=== PATIENT | male | born 1985 | race Caucasian/White ===

== ENCOUNTER 2022-03-09 21:59 | Inpatient (IN) | payer OTHER, SELFPAY ==
--- NOTE | ~2022-03-09 | XR_ITS ---
EXAMINATION: XR PELVIS CLINICAL INFORMATION: Intractable erection. COMPARISON: No similar priors. TECHNIQUE: AP view of the pelvis. FINDINGS: There are 2 nonspecific radiopaque bodies projecting inferior to the pubic symphysis symphysis in the area of the penis. Small pelvic phleboliths are noted. No acute osseous abnormalities. XR/XR pelvis 1-2V IMPRESSION: 1. There are 2 nonspecific radiopaque bodies projecting inferior to the pubic symphysis in the area of the penis. Correlate with physical examination. 2. No acute osseous abnormalities.
--- NOTE | ~2022-03-09 | XR_ITS ---
EXAMINATION: XR CHEST CLINICAL INFORMATION: Altered mental status. Unable to sit upright. COMPARISON: None TECHNIQUE: Supine AP view of the chest was obtained. FINDINGS: Patient is rotated to the left slightly. No consolidation, pneumothorax, or pleural effusion. Lung volumes are within normal limits for supine study. Cardiac and mediastinal contours are normal. No acute osseous abnormalities. Mild right convex thoracic scoliosis. XR/XR chest 1V IMPRESSION: No acute pulmonary findings.
--- NOTE | 2022-03-09 22:01 | ECG_ITS ---
Test Reason : OD Blood Pressure : / mmHG Vent. Rate : 101 BPM Atrial Rate : 101 BPM P-R Int : 150 ms QRS Dur : 080 ms QT Int : 414 ms P-R-T Axes : 057 058 018 degrees QTc Int : 536 ms Sinus tachycardia Nonspecific ST and T wave abnormality RSR' or QR pattern in V1 suggests right ventricular conduction delay Possible Left ventricular hypertrophy Abnormal ECG When compared with ECG of 27-DEC-2019 14:53, Vent. rate has increased BY 57 BPM Non-specific change in ST segment in Inferior leads ST no longer elevated in Lateral leads Nonspecific T wave abnormality now evident in Anterior leads Referred By: Kelsy Travis Electronically Signed By:SHIMA MASSEY MD
--- NOTE | 2022-03-09 22:02 | ED.GENADULT ---
HPI - General Adult General Chief complaint: Overdose Stated complaint: ams Time Seen by Provider: 03/09/22 22:01 Source: EMS Mode of arrival: EMS Limitations: altered mental status and other History of Present Illness HPI narrative: This is a 36-year-old male presenting to the emergency department altered mental status status post overdose, according to EMS parents report patient has been ordering medications online and has been taking an unknown amount of methadone, phenobarbital, olanzapine,, Lexapro and some sort of liquid concoction. According to EMS patient was discharged from [facility] on Friday after having a procedure done on his penis. Ever since patient has been self medicating however has not been this bad patient has a history of being on [place]. Narcan was given by EMS. Related Data Allergies Allergy/AdvReac Type Severity Reaction Status Date / Time No Known Allergies Allergy Unverified 02/14/22 08:37 [No Known Allergies*] Review of Systems Review of Systems: Yes Unobtainable due to mental status PMFSH Past Medical History Attestation statement: The following information was validated with the patient. Source: old records reviewed and nursing notes reviewed Physical Exam ED Vital Signs: Vital Signs - 24 hr 03/09/22 22:36 03/09/22 22:53 03/09/22 23:57 Pulse Rate 108 H 106 H 99 Respiratory Rate 22 H 17 26 H Blood Pressure 143/109 H 122/68 132/77 Pulse Oximetry 98 96 96 Oxygen Delivery Method Room Air Room Air Room Air BMI result Body Mass Index 28.1 Vital signs stable Appearance: Patient awake, moving all extremities, altered unable to answer my questions. ?Patient restless. Head: Normocephalic, atraumatic, no step-offs or deformities Eyes: Pupils equal, round and reactive to light.? ENT: Pharynx normal.? Neck: Normal inspection.? Neck supple.? CVS: Normal heart rate and rhythm.? Pulses normal.? Respiratory: No respiratory distress.? Breath sounds normal.? Abdomen: Soft and nontender.? Sensitive exam: Patient with priapism Skin: Skin warm and dry.? Normal skin color.? Normal skin turgor.? Extremities: 5/5 strength to bilateral upper and lower extremities Neuro: Patient awake, moving all extremities, altered mental status, unable to answer my questions, moving all extremities. Course Course Course Narrative: 2240 Poison control recommend optimizing magnesium to 2, potassium to for they recommend adding on a phosphorus level as well as a phenobarbital level every 4 hours until it peaks in goes to normal range also recommending EKG every 2 hours can give benzodiazepines for behavioral control. Also warned to look out preserved tone in syndrome symptoms such as altered mental status, seizure, clonus or hyperreflexia. Patient will be placed on seizure precautions at this time. Reevaluation(s) Reevaluation #1: Patient's CBC with leukocytosis likely secondary to agitation, patient's chemistry with acute kidney injury currently receiving IV hydration. Troponin negative, EKG nonischemic however showing prolonged QTC. CPK within normal limits no signs of rhabdo. Patient's EKG with slightly prolonged QTC will give magnesium at this time. Salicylates, acetaminophen negative. Ethanol negative. Urine without infection. Urine toxicology pending. Pending phenobarbital level. Repeat EKG scheduled for midnight. Patient agitated however gave Versed with some improvement. Time: 22:52 Reevaluation #2: Urine toxicology positive for fentanyl, benzos, marijuana. Negative salicylates, acetaminophen, ethanol. COVID negative. Repeat EKG pending. An additional 2 mg of Versed have been given. Time: 00:06 Reevaluation #3: Repeat EKG with sinus tachycardia, ventricular rate of 101, DC 150, QRS 80, QTC 414, QTC 536 again prolonged QTC however patient receiving magnesium. At this time will continue to monitor. Remains on telemetry. No signs of seizure, no signs of serotonin syndrome. Patient still has preop is a move, will obtain a KUB to ensure that there is no penile implant. TT to Dr. Wang. Time: 00:22 Additional Reevaluation(s): [address] Wang likely incision for peyronies, nothing to do about the erection. Hospitalist aware. Medications Administered Generic Name Dose Route Start Last Admin Trade Name Freq PRN Reason Stop Dose Admin Magnesium Sulfate 2 gm in 50 mls @ 25 mls/hr 03/09/22 22:50 03/09/22 22:59 Magnesium Sulfate/H2o IV 03/10/22 00:49 25 mls/hr ONCE ONE Administration Discontinued Medications Generic Name Dose Route Start Last Admin Trade Name Freq PRN Reason Stop Dose Admin Charcoal 50 gm 03/09/22 22:01 03/09/22 23:06 Activated Charcoal 50 Gm/240 Ml Oral.Susp PO 03/09/22 22:02 Not Given ONCE ONE Sodium Chloride 1,000 mls @ 999 mls/hr 03/09/22 22:15 03/09/22 22:32 Ns IV 03/09/22 23:15 999 mls/hr .Q1H1M CAROLINE Administration Sodium Chloride 1,000 mls @ 999 mls/hr 03/09/22 23:00 03/09/22 23:24 Ns IV 03/10/22 00:00 999 mls/hr .Q1H1M CAROLINE Administration Midazolam HCl 2 mg 03/09/22 22:42 03/09/22 22:48 Midazolam Hcl/Pf 2 Mg/2 Ml Vial IVPUSH 03/09/22 22:43 2 mg ONCE ONE Administration Midazolam HCl 2 mg 03/09/22 23:48 03/09/22 23:58 Midazolam Hcl/Pf 2 Mg/2 Ml Vial IVPUSH 03/09/22 23:49 2 mg ONCE ONE Administration Medical Decision Making [facility] Narrative Medical decision making narrative: 2225 36-year-old male presents for altered mental status status post intentional overdose on medications he buys online. Unsure how much he has had. Physical examination patient unable to answer my questions, moving all extremities, pupils equal round and reactive to light, unable to assess neuro examination secondary to patient not participating. Regular rate and rhythm. Lungs clear. Abdomen soft nontender nondistended. Hemodynamically stable. No evidence of trauma at this time. Patient noted to have priapism upon arrival Plan at this time is to reach out to poison control for further guidance. Patient controlling his own airway. Will order charcoal at this time. Will obtain basic labs, toxicology, acetaminophen, salicylates. Concerns for potential serotonin syndrome. Attempted to contact family about priapism, to obtain more information about patient's surgery however no information in the chart for emergency contact patient isn't able to answer my questions. Medical Records Medical records reviewed: Yes I reviewed the patient's medical records. Lab Data Lab results reviewed: Yes I reviewed the patient's lab results. Result diagrams: 03/09/22 22:24 03/09/22 22:24 Labs: Lab Results 03/09/22 03/09/22 03/09/22 Range/Units 22:24 22:24 22:24 WBC 12.2 H (4.8-10.8) X10*3/uL RBC 3.65 L (4.60-5.80) X10*6/uL Hgb 11.2 L (14.0-18.0) g/dl Hct 33.6 L (42.0-52.0) % MCV 92.1 (80.0-98.0) fL MCH 30.7 (27.0-33.0) pg MCHC 33.3 (31.0-36.0) g/dl RDW 13.6 (11.0-16.0) % Plt Count 561 H (160-400) X10*3/uL MPV 9.5 (9.4-12.4) fL Immature Gran % (Auto) 1.1 H (0.0-0.4) % Neut % (Auto) 51.2 (45-73) % Lymph % (Auto) 33.9 (20-40) % Imperial % (Auto) 9.7 (2-11) % Eos % (Auto) 3.4 (0-4) % Baso % (Auto) 0.7 (0-2) % Lymph # (Auto) 4.1 (1.2-4.9) X10*3/uL Imperial # (Auto) 1.2 (0.1-1.2) X10*3/uL Eos # (Auto) 0.4 (0.0-0.4) X10*3/uL Baso # (Auto) 0.1 (0.0-0.2) X10*3/uL Abs Immat Gran (auto) 0.14 H (0.00-0.03) X10*3/uL Absolute Neuts (auto) 6.2 (2.0-8.3) x10*3/uL Absolute Nucleated RBC 0.000 (0.0-0.012) X10*3/uL Nucleated RBC % (auto) 0.0 (0.0-0.2) /100WBC Sodium 142 (135-145) mmol/L Potassium 4.2 (3.3-5.1) mmol/L Chloride 104 (96-108) mmol/L Carbon Dioxide 25 (22-29) mmol/L Anion Gap 17 (12-20) BUN 24 H (9-16) mg/dL Creatinine 1.87 H (0.5-1.4) mg/dL Estim Creat Clear Calc 72.0 Estimated GFR 42 Random Glucose 94 (60-115) mg/dL Calcium 9.7 (8.4-10.2) mg/dL Phosphorus 3.4 (2.7-4.5) mg/dL Magnesium 2.4 (1.6-2.6) mg/dL Total Bilirubin 0.4 (0.0-1.0) mg/dL AST 27 (5-37) U/L ALT 75 H (0-40) U/L Alkaline Phosphatase 142 H (39-117) U/L Total Creatine Kinase 98 (38-174) U/L Troponin I High Sens < 3.5 (<3.5-35.0) ng/L Total Protein 7.7 (6.5-8.0) g/dL Albumin 4.0 (3.5-5.0) g/dL Urine Color Urine Appearance Urine pH (5.0-9.0) Ur Specific [place] (1.005-1.025) Urine Protein (Neg-Trace) mg/dL Urine Glucose (UA) (Negative) mg/dL Urine Ketones (Negative) mg/dL Urine Blood (Negative) Urine Nitrite (Negative) Ur Leukocyte Esterase (Negative) Salicylates < 5.0 L (15-30) mg/dL Urine Opiates Screen (Not Detect) Urine Fentanyl Screen (Not Detect) Acetaminophen < 1 (<30) mcg/mL Ur Barbiturates Screen (Not Detect) Ur Phencyclidine Scrn (Not Detect) Ur Amphetamines Screen (Not Detect) U Benzodiazepines Scrn (Not Detect) Urine Cocaine Screen (Not Detect) U Marijuana (THC) Screen (Not Detect) Ethyl Alcohol < 10 mg/dL COVID-19 (DANNIE) (Negative) COVID-19 Clin Com 03/09/22 03/09/22 03/09/22 Range/Units 22:24 22:30 22:30 WBC (4.8-10.8) X10*3/uL RBC (4.60-5.80) X10*6/uL Hgb (14.0-18.0) g/dl Hct (42.0-52.0) % MCV (80.0-98.0) fL MCH (27.0-33.0) pg MCHC (31.0-36.0) g/dl RDW (11.0-16.0) % Plt Count (160-400) X10*3/uL MPV (9.4-12.4) fL Immature Gran % (Auto) (0.0-0.4) % Neut % (Auto) (45-73) % Lymph % (Auto) (20-40) % [place] % (Auto) (2-11) % Eos % (Auto) (0-4) % Baso % (Auto) (0-2) % Lymph # (Auto) (1.2-4.9) X10*3/uL [place] # (Auto) (0.1-1.2) X10*3/uL Eos # (Auto) (0.0-0.4) X10*3/uL Baso # (Auto) (0.0-0.2) X10*3/uL Abs Immat Gran (auto) (0.00-0.03) X10*3/uL Absolute Neuts (auto) (2.0-8.3) x10*3/uL Absolute Nucleated RBC (0.0-0.012) X10*3/uL Nucleated RBC % (auto) (0.0-0.2) /100WBC Sodium (135-145) mmol/L Potassium (3.3-5.1) mmol/L Chloride (96-108) mmol/L Carbon Dioxide (22-29) mmol/L Anion Gap (12-20) BUN (9-16) mg/dL Creatinine (0.5-1.4) mg/dL Estim Creat Clear Calc Estimated GFR Random Glucose (60-115) mg/dL Calcium (8.4-10.2) mg/dL Phosphorus (2.7-4.5) mg/dL Magnesium (1.6-2.6) mg/dL Total Bilirubin (0.0-1.0) mg/dL AST (5-37) U/L ALT (0-40) U/L Alkaline Phosphatase (39-117) U/L Total Creatine Kinase (38-174) U/L Troponin I High Sens (<3.5-35.0) ng/L Total Protein (6.5-8.0) g/dL Albumin (3.5-5.0) g/dL Urine Color Yellow Urine Appearance Clear Urine pH 5.0 (5.0-9.0) Ur Specific [place] 1.015 (1.005-1.025) Urine Protein Negative (Neg-Trace) mg/dL Urine Glucose (UA) Negative (Negative) mg/dL Urine Ketones Trace (Negative) mg/dL Urine Blood Negative (Negative) Urine Nitrite Negative (Negative) Ur Leukocyte Esterase Negative (Negative) Salicylates (15-30) mg/dL Urine Opiates Screen Not Detected (Not Detect) Urine Fentanyl Screen POSITIVE H (Not Detect) Acetaminophen (<30) mcg/mL Ur Barbiturates Screen Not Detected (Not Detect) Ur Phencyclidine Scrn Not Detected (Not Detect) Ur Amphetamines Screen Not Detected (Not Detect) U Benzodiazepines Scrn POSITIVE H (Not Detect) Urine Cocaine Screen Not Detected (Not Detect) U Marijuana (THC) Screen POSITIVE H (Not Detect) Ethyl Alcohol mg/dL COVID-19 (DANNIE) Negative (Negative) COVID-19 Clin Com See Note ECG Data Attestation: I personally reviewed and interpreted this ECG as follows: Prior ECG tracings: available for review Interpretation: Ventricular rate of 101, DC normal, QRS normal, QT/QTC prolonged, EKG was sinus tachycardia no ST elevations or inversions concerning for ischemia. Critical Care Time Critical Care Time Critical Care Time: Yes Total Critical Care Time: 90 Attestation: I attest to this time spent taking care of the patient, obtaining history, physical, reviewing labs, imaging, speaking to my attending, speaking to specialist. Discharge Plan Discharge Clinical Impression: Drug overdose, HE (acute kidney injury), Prolonged QT interval Patient Disposition: Admitted As Inpatient
[2022-03-09 22:29] LABS: MANUAL DIFF FLAG NO
[2022-03-09 22:31] LABS: Basophils Absolute Auto 0.1 X10*3/uL (0.0-0.2); Basophils Percent Auto 0.7 % (0-2); Eosinophils Absolute Auto 0.4 X10*3/uL (0.0-0.4); Eosinophils Percent Auto 3.4 % (0-4); Hematocrit 33.6 % (42.0-52.0); Hemoglobin 11.2 g/dl (14.0-18.0); Imm Gran Abs Auto 0.14 X10*3/uL (0.00-0.03); Imm Gran Pct Auto 1.1 % (0.0-0.4); Lymphocytes Absolute Auto 4.1 X10*3/uL (1.2-4.9); Lymphocytes Percent Auto 33.9 % (20-40); Mean Corpuscular HGB Conc 33.3 g/dl (31.0-36.0); Mean Corpuscular Hemoglobin 30.7 pg (27.0-33.0); Mean Corpuscular Volume 92.1 fL (80.0-98.0); Mean Platelet Volume 9.5 fL (9.4-12.4); Monocytes Absolute Auto 1.2 X10*3/uL (0.1-1.2); Monocytes Percent Auto 9.7 % (2-11); Neutrophils Absolute Auto 6.2 x10*3/uL (2.0-8.3); Neutrophils Percent Auto 51.2 % (45-73); Platelet Count 561 X10*3/uL (160-400); Red Blood Count 3.65 X10*6/uL (4.60-5.80); Red Cell Distribution Width 13.6 % (11.0-16.0); White Blood Count 12.2 X10*3/uL (4.8-10.8)
[2022-03-09] MEDS: 0.9 % Sodium Chloride 1,000 ML 999 ML IV ×2 (22:32→23:24)
[2022-03-09 22:36] VITALS: BP 143/109; PULSE 108; RESP 22; O2SAT 98; BMI 28.1
--- NOTE | 2022-03-09 22:44 | PC.NURSE ---
Poison control called at 10:40opm, provider RANJIT Escoto took call and recommendation. Notified VINCE Aviles.
[2022-03-09] MEDS: Midazolam HCl/PF 2 MG/2 ML VIAL IVPUSH ×2 (22:48→23:58)
[2022-03-09 22:49] LABS: Appearance Urine Clear; Color Urine Yellow; Glucose Urine UA Negative (Negative); Leukocyte Esterase Urine Negative (Negative); Nitrite Urine Negative (Negative); Specific Gravity - Urine 1.015 (1.005-1.025); Urine Blood Negative (Negative); Urine Ketones Trace mg/dL (Negative); Urine Protein Negative (Neg-Trace)
[2022-03-09 22:53] VITALS: BP 122/68; PULSE 106; RESP 17; O2SAT 96
[2022-03-09 22:54] LABS: Troponin-I High Sensitivity < 3.5 ng/L (<3.5-35.0)
[2022-03-09 22:56] LABS: Acetaminophen LAB < 1 mcg/mL (<30); Alanine Aminotransferase 75 U/L (0-40); Alkaline Phosphatase 142 U/L (39-117); Anion Gap 17 (12-20); Aspartate Amino Transferase 27 U/L (5-37); Bilirubin Total 0.4 mg/dL (0.0-1.0); Blood Urea Nitrogen 24 mg/dL (9-16); Calcium 9.7 mg/dL (8.4-10.2); Carbon Dioxide 25 mmol/L (22-29); Chloride 104 mmol/L (96-108); Estimated Glomerular Filt Rate 42; Ethanol < 10 mg/dL; Glucose Random 94 mg/dL (60-115); Magnesium 2.4 mg/dL (1.6-2.6); Potassium 4.2 mmol/L (3.3-5.1); Salicylate < 5.0 mg/dL (15-30); Sodium 142 mmol/L (135-145); Total Protein 7.7 g/dL (6.5-8.0)
[2022-03-09] MEDS: Magnesium Sulfate/H2O 2 GM/50 ML PIGGYBACK IV (22:59)
[2022-03-09 23:00] LABS: COVID-19 Test Negative (Negative)
[2022-03-09 23:04] LABS: Phosphorus 3.4 mg/dL (2.7-4.5)
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
[2022-03-09 23:41] LABS: Amphetamine Screen Urine Not Detected (Not Detect); Barbiturates, Urine Not Detected (Not Detect); Benzodiazepines Screen Urine POSITIVE (Not Detect); Cannabinoid Screen Urine POSITIVE (Not Detect); Cocaine Screen Urine Not Detected (Not Detect); Fentanyl, urine POSITIVE (Not Detect); Opiate Screen Urine Not Detected (Not Detect); Phencyclidine Screen Urine Not Detected (Not Detect)
[2022-03-09 23:57] VITALS: BP 132/77; PULSE 99; RESP 26; O2SAT 96
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
[2022-03-10] VITALS (8 sets, daily range): BP systolic 108–120; BP diastolic 57–62; PULSE 62–84; RESP 16–22; TEMP 35.8–36.7; O2SAT 96–100
--- NOTE | 2022-03-10 | ECG_ITS ---
Test Reason : REPEAT Blood Pressure : / mmHG Vent. Rate : 081 BPM Atrial Rate : 081 BPM P-R Int : 158 ms QRS Dur : 096 ms QT Int : 436 ms P-R-T Axes : 059 064 046 degrees QTc Int : 506 ms Normal sinus rhythm RSR' or QR pattern in V1 suggests right ventricular conduction delay Nonspecific ST abnormality Inferior leads Abnormal ECG When compared with ECG of 09-MAR-2022 22:29, T wave inversion no longer evident in Inferior leads Nonspecific T wave abnormality, improved in Anterior leads Referred By: Kelsy Travis Electronically Signed By:SHIMA MASSEY MD
[2022-03-10 00:39] LABS: MANUAL DIFF FLAG NO
[2022-03-10 00:46] LABS: Basophils Absolute Auto 0.1 X10*3/uL (0.0-0.2); Basophils Percent Auto 0.5 % (0-2); Eosinophils Absolute Auto 0.2 X10*3/uL (0.0-0.4); Eosinophils Percent Auto 2.1 % (0-4); Hematocrit 26.8 % (42.0-52.0); Hemoglobin 8.7 g/dl (14.0-18.0); Imm Gran Abs Auto 0.17 X10*3/uL (0.00-0.03); Imm Gran Pct Auto 1.7 % (0.0-0.4); Lymphocytes Absolute Auto 1.7 X10*3/uL (1.2-4.9); Lymphocytes Percent Auto 16.1 % (20-40); Mean Corpuscular HGB Conc 32.5 g/dl (31.0-36.0); Mean Corpuscular Volume 92.4 fL (80.0-98.0); Mean Platelet Volume 9.7 fL (9.4-12.4); Monocytes Absolute Auto 0.8 X10*3/uL (0.1-1.2); Monocytes Percent Auto 7.6 % (2-11); Neutrophils Absolute Auto 7.4 x10*3/uL (2.0-8.3); Platelet Count 491 X10*3/uL (160-400); Red Cell Distribution Width 13.3 % (11.0-16.0); White Blood Count 10.2 X10*3/uL (4.8-10.8)
[2022-03-10 00:47] LABS: VBG Base Excess 0.3 mmol/L; VBG HCO3 22 mmol/L (22-26); VBG pCO2 26 mmHg; VBG pH 7.52 (7.32-7.43); VBG pO2 130 mmHg
[2022-03-10 00:48] LABS: Venous Blood Gas Refer to POC result
[2022-03-10] MEDS: 0.9 % Sodium Chloride 1,000 ML 999 ML IV (00:52)
[2022-03-10] MEDS: Magnesium Sulfate/D5W 1 GM/100 ML PIGGYBACK IV (00:53)
[2022-03-10 01:07] LABS: Alanine Aminotransferase 66 U/L (0-40); Albumin Level 3.5 g/dL (3.5-5.0); Alkaline Phosphatase 124 U/L (39-117); Anion Gap 16 (12-20); Aspartate Amino Transferase 26 U/L (5-37); Bilirubin Total 0.3 mg/dL (0.0-1.0); Blood Urea Nitrogen 22 mg/dL (9-16); Calcium 8.4 mg/dL (8.4-10.2); Carbon Dioxide 21 mmol/L (22-29); Chloride 110 mmol/L (96-108); Estimated Glomerular Filt Rate 52; Glucose Random 100 mg/dL (60-115); Sodium 143 mmol/L (135-145); Total Protein 6.4 g/dL (6.5-8.0)
--- NOTE | 2022-03-10 01:23 | P.HPHOSP_ITS ---
History of Present Illness Date of Service: 03/10/22 Chief Complaint: Altered mentation This is a 36 year old male with pertinent history of substance use disorder who was brought to the emergency department for evaluation of altered mentation. As per EMS, patient had been ordering medications online and was taking unknown amount of methadone, phenobarbital, Zyprexa, Lexapro and some sort of liquid concoction. Patient recently had a penile procedure on Friday, unknown details. He does have a history of substance use disorder and after the procedure patient had been using unknown amounts of substances. Has history of being on [address]. No family at bedside and unable to contact any. Patient is only responding to painful stimulus at the time of my examination. He was given Narcan by EMS enroute and Versed in the ER for agitation. Poison Control was contacted and he was given activated charcoal. Review of Systems Review of Systems: Yes Unobtainable due to mental status [facility] Medical History (Updated 03/10/22 @ 01:30 by María Elena Boyce MD) Substance use disorder Functional capacity: independent ambulation Social History Advance Directives: No Advance Directives Information Provided: No Meds Allergies Allergy/AdvReac Type Severity Reaction Status Date / Time No Known Allergies Allergy Unverified 02/14/22 08:37 [No Known Allergies*] Active Medications: Current Medications Acetaminophen (Acetaminophen Supp 650 Mg Supp.Rect) 650 mg MD Q6H PRN PRN Reason: Pain, Mild (Pain Scale 1-3) Sodium Chloride (Ns) 1,000 mls @ 999 mls/hr IV .Q1H1M CAROLINE Stop: 03/10/22 01:30 Last Admin: 03/10/22 00:52 Dose: 999 mls/hr Magnesium Sulfate/Dextrose (Magnesium Sulfate/D5w) 1 gm in 100 mls @ 100 mls/hr IV ONCE ONE Stop: 03/10/22 01:25 Last Admin: 03/10/22 00:53 Dose: 100 mls/hr Ondansetron HCl (Ondansetron Hcl 4 Mg/2 Ml Vial) 4 mg IVPUSH Q8H PRN PRN Reason: Nausea and Vomiting Pharmacy Consult (Consult Rx Perform Med Rec) 1 each MISCELLANE ONCE PRN PRN Reason: Consult order Sodium Chloride (0.9 % Sodium Chloride Flush 3 Ml Syringe) 3 ml IVFLUSH QSHIFT [facility] Physical Exam Vital Signs and Narrative: Vital Signs: Last Vital Signs Pulse 82 03/10/22 01:20 Resp 19 03/10/22 01:20 BP 112/58 L 03/10/22 00:59 Pulse Ox 97 03/10/22 01:20 O2 Del Method 03/10/22 01:20 BMI result Body Mass Index 28.1 Middle-aged male lying in bed in no distress Neck supple, no JVD Regular rate and rhythm, S1-S2 heard Regular breath sounds bilaterally, no wheezing or crackles appreciated Abdomen soft nontender, no guarding, no rigidity, erect penis with stitches on the ventral aspect Patient is only responding to painful stimulus Psych: Drowsy No pedal edema Results Labs CBC and Chem 7: 03/10/22 00:25 03/10/22 00:25 Labs: Laboratory Results - last 24 hr 03/09/22 03/09/22 03/09/22 22:24 22:24 22:24 MCV 92.1 MCH 30.7 MCHC 33.3 RDW 13.6 Plt Count 561 H MPV 9.5 Immature Gran % (Auto) 1.1 H Neut % (Auto) 51.2 Lymph % (Auto) 33.9 [place] % (Auto) 9.7 Eos % (Auto) 3.4 Baso % (Auto) 0.7 Lymph # (Auto) 4.1 [place] # (Auto) 1.2 Eos # (Auto) 0.4 Baso # (Auto) 0.1 Abs Immat Gran (auto) 0.14 H Absolute Neuts (auto) 6.2 Absolute Nucleated RBC 0.000 Nucleated RBC % (auto) 0.0 VBG pH VBG pCO2 VBG pO2 VBG HCO3 VBG O2 Saturation VBG Base Excess Anion Gap 17 Estim Creat Clear Calc 72.0 Estimated GFR 42 Random Glucose 94 Calcium 9.7 Phosphorus 3.4 Magnesium 2.4 Total Bilirubin 0.4 AST 27 ALT 75 H Alkaline Phosphatase 142 H Total Creatine Kinase 98 Troponin I High Sens < 3.5 Total Protein 7.7 Albumin 4.0 Urine Color Urine Appearance Urine pH Ur Specific [place] Urine Protein Urine Glucose (UA) Urine Ketones Urine Blood Urine Nitrite Ur Leukocyte Esterase Salicylates < 5.0 L Urine Opiates Screen Urine Fentanyl Screen Acetaminophen < 1 Ur Barbiturates Screen Ur Phencyclidine Scrn Ur Amphetamines Screen Phenobarbital U Benzodiazepines Scrn Urine Cocaine Screen U Marijuana (THC) Screen Ethyl Alcohol < 10 COVID-19 (DANNIE) COVID-19 Clin Com 03/09/22 03/09/22 03/09/22 22:24 22:30 22:30 MCV MCH MCHC RDW Plt Count MPV Immature Gran % (Auto) Neut % (Auto) Lymph % (Auto) [place] % (Auto) Eos % (Auto) Baso % (Auto) Lymph # (Auto) [place] # (Auto) Eos # (Auto) Baso # (Auto) Abs Immat Gran (auto) Absolute Neuts (auto) Absolute Nucleated RBC Nucleated RBC % (auto) VBG pH VBG pCO2 VBG pO2 VBG HCO3 VBG O2 Saturation VBG Base Excess Anion Gap Estim Creat Clear Calc Estimated GFR Random Glucose Calcium Phosphorus Magnesium Total Bilirubin AST ALT Alkaline Phosphatase Total Creatine Kinase Troponin I High Sens Total Protein Albumin Urine Color Yellow Urine Appearance Clear Urine pH 5.0 Ur Specific [place] 1.015 Urine Protein Negative Urine Glucose (UA) Negative Urine Ketones Trace Urine Blood Negative Urine Nitrite Negative Ur Leukocyte Esterase Negative Salicylates Urine Opiates Screen Not Detected Urine Fentanyl Screen POSITIVE H Acetaminophen Ur Barbiturates Screen Not Detected Ur Phencyclidine Scrn Not Detected Ur Amphetamines Screen Not Detected Phenobarbital U Benzodiazepines Scrn POSITIVE H Urine Cocaine Screen Not Detected U Marijuana (THC) Screen POSITIVE H Ethyl Alcohol COVID-19 (DANNIE) Negative COVID-19 Clin Com See Note 03/10/22 03/10/22 03/10/22 00:15 00:25 00:25 MCV 92.4 MCH 30.0 MCHC 32.5 RDW 13.3 Plt Count 491 H MPV 9.7 Immature Gran % (Auto) 1.7 H Neut % (Auto) 72.0 Lymph % (Auto) 16.1 L [place] % (Auto) 7.6 Eos % (Auto) 2.1 Baso % (Auto) 0.5 Lymph # (Auto) 1.7 [place] # (Auto) 0.8 Eos # (Auto) 0.2 Baso # (Auto) 0.1 Abs Immat Gran (auto) 0.17 H Absolute Neuts (auto) 7.4 Absolute Nucleated RBC 0.000 Nucleated RBC % (auto) 0.0 VBG pH VBG pCO2 VBG pO2 VBG HCO3 VBG O2 Saturation VBG Base Excess Anion Gap 16 Estim Creat Clear Calc 88.0 Estimated GFR 52 Random Glucose 100 Calcium 8.4 D Phosphorus Magnesium Total Bilirubin 0.3 AST 26 ALT 66 H Alkaline Phosphatase 124 H Total Creatine Kinase Troponin I High Sens Total Protein 6.4 L Albumin 3.5 Urine Color Urine Appearance Urine pH Ur Specific [place] Urine Protein Urine Glucose (UA) Urine Ketones Urine Blood Urine Nitrite Ur Leukocyte Esterase Salicylates Urine Opiates Screen Urine Fentanyl Screen Acetaminophen Ur Barbiturates Screen Ur Phencyclidine Scrn Ur Amphetamines Screen Phenobarbital < 1.1 L* U Benzodiazepines Scrn Urine Cocaine Screen U Marijuana (THC) Screen Ethyl Alcohol COVID-19 (DANNIE) COVID-19 [employer] 03/10/22 00:40 MCV MCH MCHC RDW Plt Count MPV Immature Gran % (Auto) Neut % (Auto) Lymph % (Auto) [place] % (Auto) Eos % (Auto) Baso % (Auto) Lymph # (Auto) [place] # (Auto) Eos # (Auto) Baso # (Auto) Abs Immat Gran (auto) Absolute Neuts (auto) Absolute Nucleated RBC Nucleated RBC % (auto) VBG pH 7.52 H VBG pCO2 26 VBG pO2 130 VBG HCO3 22 VBG O2 Saturation 100.0 VBG Base Excess 0.3 Anion Gap Estim Creat Clear Calc Estimated GFR Random Glucose Calcium Phosphorus Magnesium Total Bilirubin AST ALT Alkaline Phosphatase Total Creatine Kinase Troponin I High Sens Total Protein Albumin Urine Color Urine Appearance Urine pH Ur Specific [place] Urine Protein Urine Glucose (UA) Urine Ketones Urine Blood Urine Nitrite Ur Leukocyte Esterase Salicylates Urine Opiates Screen Urine Fentanyl Screen Acetaminophen Ur Barbiturates Screen Ur Phencyclidine Scrn Ur Amphetamines Screen Phenobarbital U Benzodiazepines Scrn Urine Cocaine Screen U Marijuana (THC) Screen Ethyl Alcohol COVID-19 (DANNIE) COVID-19 [facility] Com Imaging Radiologist's Impressions: Impressions Chest X-Ray 03/10/22 00:53 IMPRESSION: No acute pulmonary findings. Assessment and Plan (1) Substance use disorder: Status: Acute (2) HE (acute kidney injury): Status: Acute (3) Prolonged QT interval: Status: Acute (4) Acute encephalopathy: Status: Acute Plan This is a 36 year old male with pertinent history of substance use disorder who was brought to the emergency department for evaluation of altered mentation. #. Acute toxic encephalopathy due to: #. Substance use disorder -Monitor for improvement in mentation over time. Monitor for withdrawal. Patient is hemodynamically stable and is protecting airway. Received activated charcoal, ordered phenobarbital level and repeat EKG as per poison Control. Addiction Team and CARE consulted. #. QT prolongation - Magnesium sulfate given in the ER. Avoid QT prolonging agents #. Peyronie disease - urology was consulted from the ER due to concern for priapism. No further Urology recommendations for Peyronie disease #. HE, Stage I -pre-renal. resuscitated with IV crystalloids in the ER. Monitor urine output and creatinine #. Normocytic anemia -no evidence of bleeding. Hb above transfusion threshold #. Reactive thrombocytosis NPO until mentation improves Full code Admit as inpatient for close monitoring of mentation and hemodynamics. Needs IV fluids for HE Quality Stroke Does the patient have a stroke diagnosis?: No VTE Prior VTE?: No VTE Risk Level:: Medical - low VTE Device Contraindication: Treatment Not Indicated VTE Drug Contraindication: Treatment Not Indicated
--- NOTE | 2022-03-10 02:00 | ECG_ITS ---
Test Reason : overdose Blood Pressure : / mmHG Vent. Rate : 069 BPM Atrial Rate : 069 BPM P-R Int : 156 ms QRS Dur : 084 ms QT Int : 424 ms P-R-T Axes : 000 176 152 degrees QTc Int : 454 ms Suspect limb lead reversal, interpretation assumes no reversal Normal sinus rhythm Lateral infarct , age undetermined Inferior infarct , age undetermined Abnormal ECG When compared with ECG of 10-MAR-2022 00:15, Significant changes have occurred limb lead reversal Referred By: Kelsy Travis Electronically Signed By:SHIMA MASSEY MD
--- NOTE | 2022-03-10 03:45 | PC.NURSE ---
Pt is confused, A /O to self. Speech is garbled, follow commands and redirected. Unable to answer questions, restless and tries to move out of bed. Security completed belonging list and locked up. Cameral and Sitter at bedside.
--- NOTE | 2022-03-10 04:15 | PC.NURSE ---
Pt expressed the urge to urinate multiple times, unable to. Bladder scanned for 630 mL; hospitalist and nursing sawmill supervisor aware. To repeat bladder scan in an hour if patient unable to self void.
[2022-03-10 05:31] LABS: MANUAL DIFF FLAG NO
[2022-03-10 05:34] LABS: Basophils Absolute Auto 0.1 X10*3/uL (0.0-0.2); Basophils Percent Auto 0.5 % (0-2); Eosinophils Absolute Auto 0.2 X10*3/uL (0.0-0.4); Eosinophils Percent Auto 1.9 % (0-4); Hematocrit 30.8 % (42.0-52.0); Imm Gran Abs Auto 0.08 X10*3/uL (0.00-0.03); Imm Gran Pct Auto 0.8 % (0.0-0.4); Lymphocytes Absolute Auto 2.3 X10*3/uL (1.2-4.9); Lymphocytes Percent Auto 22.9 % (20-40); Mean Corpuscular HGB Conc 32.5 g/dl (31.0-36.0); Mean Corpuscular Volume 92.5 fL (80.0-98.0); Mean Platelet Volume 9.7 fL (9.4-12.4); Monocytes Absolute Auto 0.7 X10*3/uL (0.1-1.2); Monocytes Percent Auto 7.3 % (2-11); Neutrophils Absolute Auto 6.7 x10*3/uL (2.0-8.3); Neutrophils Percent Auto 66.6 % (45-73); Platelet Count 483 X10*3/uL (160-400); Red Blood Count 3.33 X10*6/uL (4.60-5.80); Red Cell Distribution Width 13.5 % (11.0-16.0); White Blood Count 10.1 X10*3/uL (4.8-10.8)
[2022-03-10 05:50] LABS: Anion Gap 15 (12-20); Blood Urea Nitrogen 18 mg/dL (9-16); Calcium 8.4 mg/dL (8.4-10.2); Carbon Dioxide 21 mmol/L (22-29); Chloride 111 mmol/L (96-108); Creatinine Clr Calc Pharmacy 105.2; Estimated Glomerular Filt Rate > 60; Glucose Random 92 mg/dL (60-115); Potassium 4.5 mmol/L (3.3-5.1); Sodium 142 mmol/L (135-145)
--- NOTE | 2022-03-10 06:45 | PC.NURSE ---
Pt bladder scanned again for 744 mL. Straight cat for 550 mL.
--- NOTE | 2022-03-10 08:34 | PHA.MEDREC ---
Pharmacy Consult ? Medication Reconciliation Pharmacy has completed the medication reconciliation.Spoke with patient in his room. Pt very drowsy.
--- NOTE | 2022-03-10 09:39 | PM.EVENT ---
Event Note Date of Service: 03/10/22 Event Note: Pt seen/examined, more alert, but mumbling his words and c/o penile pain that is not new. he remains somehow confused but better from prior description, no agitated, has sitter in the room. Acute toxic encephalopathy d/t mixed illicit substance use--some unknown. Likely to improve with conservative management, continue current care
[2022-03-10] MEDS: 0.9 % Sodium Chloride Flush 3 ML SYRINGE IVFLUSH ×2 (10:16→16:18)
--- NOTE | 2022-03-10 10:29 | PC.NURSE ---
pt reporting difficulty urinating, Dr Miranda made aware. Pt refusing bladder scan.
[2022-03-10] MEDS: Nicotine 14 MG PATCH.TD24 TRANSDERMA (11:19)
--- NOTE | 2022-03-10 17:37 | PM.EVENT ---
Event Note Date of Service: 03/10/22 Event Note: patient requested to leave against medical advice. He is alert and oriented x3. He does not remember events leading up to his admission, however, he denies any suicidality previous or current. He is aware that the plan was to be seen by Urology, and to continue monitoring for prolonged QT and encephalopathy. However, he decided to leave against medical advice. He is aware of the risks of doing so including .
--- NOTE | 2022-03-10 18:23 | PC.NURSE ---
Addendum entered by Cony Lux RN 03/10/22 18:49: Pt loitering security called. Nursing inside plant supervisor aware. Original Note: Pt AOx4 deciding to leave AMA. Dr Hardy informed and went to pt bedside. Pt verbally understood risks of leaving against medical advice and signed AMA forms. After signing pt stated intent to go buy drugs. Pt educated on risks of using. Pt verbalizes understanding and still desires to leave. Pts father called the unit verbalizing concern about pt leaving on his own. Father educated about how we cannot hold pt against will. Father talking to pt now attempting to convince pt to stay. Nursing inside plant supervisor made aware.
--- NOTE | 2022-03-11 15:27 | HO.ADDICT_ITS ---
History of Present Illness Date of Service: 03/10/2022 Chief Complaint: altered mentation Reason for Consult: addiction consult for substance use, altered mental status Requesting physician: María Elena Boyce Discussed with referring provider: No (discussed with covering provider) Sources of Information: patient interviewed and chart reviewed Additional Sources of Information: sales communications manager. HPI Narrative: This personal lines underwriter attempted to meet with patient. Patient has sitter in room. Continues confused. Unable to complete a full assessment. Patient denies any active substance use. Unit case filler reported that she spoke with patient's father, who had said he had recently been discharged from a [address] facility in [facility]. Review of Systems Review of Systems Yes Unobtainable due to mental status Diagnostics Vital Signs (24Hr): Vital Signs - 24 hr 03/10/22 15:43 Temperature 98.0 F Pulse Rate 68 Respiratory Rate 16 Blood Pressure 120/57 L Pulse Oximetry 99 Oxygen Delivery Method Room Air BMI result Body Mass Index 28.1 Labs Results: 03/10/22 05:21 03/10/22 05:21 Labs: Laboratory Results - last 48 hr 03/09/22 03/09/22 03/09/22 22:24 22:24 22:24 WBC 12.2 H RBC 3.65 L Hgb 11.2 L Hct 33.6 L MCV 92.1 MCH 30.7 MCHC 33.3 RDW 13.6 Plt Count 561 H MPV 9.5 Immature Gran % (Auto) 1.1 H Neut % (Auto) 51.2 Lymph % (Auto) 33.9 [place] % (Auto) 9.7 Eos % (Auto) 3.4 Baso % (Auto) 0.7 Lymph # (Auto) 4.1 [place] # (Auto) 1.2 Eos # (Auto) 0.4 Baso # (Auto) 0.1 Abs Immat Gran (auto) 0.14 H Absolute Neuts (auto) 6.2 Absolute Nucleated RBC 0.000 Nucleated RBC % (auto) 0.0 VBG pH VBG pCO2 VBG pO2 VBG HCO3 VBG O2 Saturation VBG Base Excess Sodium 142 Potassium 4.2 Chloride 104 Carbon Dioxide 25 Anion Gap 17 BUN 24 H Creatinine 1.87 H Estim Creat Clear Calc 72.0 Estimated GFR 42 Random Glucose 94 Calcium 9.7 Phosphorus 3.4 Magnesium 2.4 Total Bilirubin 0.4 AST 27 ALT 75 H Alkaline Phosphatase 142 H Total Creatine Kinase 98 Troponin I High Sens < 3.5 Total Protein 7.7 Albumin 4.0 Urine Color Urine Appearance Urine pH Ur Specific [place] Urine Protein Urine Glucose (UA) Urine Ketones Urine Blood Urine Nitrite Ur Leukocyte Esterase Salicylates < 5.0 L Urine Opiates Screen Urine Fentanyl Screen Acetaminophen < 1 Ur Barbiturates Screen Ur Phencyclidine Scrn Ur Amphetamines Screen Phenobarbital U Benzodiazepines Scrn Urine Cocaine Screen U Marijuana (THC) Screen Ethyl Alcohol < 10 COVID-19 (DANNIE) COVID-19 [employer] Com 03/09/22 03/09/22 03/09/22 22:24 22:30 22:30 WBC RBC Hgb Hct MCV MCH MCHC RDW Plt Count MPV Immature Gran % (Auto) Neut % (Auto) Lymph % (Auto) [place] % (Auto) Eos % (Auto) Baso % (Auto) Lymph # (Auto) [place] # (Auto) Eos # (Auto) Baso # (Auto) Abs Immat Gran (auto) Absolute Neuts (auto) Absolute Nucleated RBC Nucleated RBC % (auto) VBG pH VBG pCO2 VBG pO2 VBG HCO3 VBG O2 Saturation VBG Base Excess Sodium Potassium Chloride Carbon Dioxide Anion Gap BUN Creatinine Estim Creat Clear Calc Estimated GFR Random Glucose Calcium Phosphorus Magnesium Total Bilirubin AST ALT Alkaline Phosphatase Total Creatine Kinase Troponin I High Sens Total Protein Albumin Urine Color Yellow Urine Appearance Clear Urine pH 5.0 Ur Specific [place] 1.015 Urine Protein Negative Urine Glucose (UA) Negative Urine Ketones Trace Urine Blood Negative Urine Nitrite Negative Ur Leukocyte Esterase Negative Salicylates Urine Opiates Screen Not Detected Urine Fentanyl Screen POSITIVE H Acetaminophen Ur Barbiturates Screen Not Detected Ur Phencyclidine Scrn Not Detected Ur Amphetamines Screen Not Detected Phenobarbital U Benzodiazepines Scrn POSITIVE H Urine Cocaine Screen Not Detected U Marijuana (THC) Screen POSITIVE H Ethyl Alcohol COVID-19 (DANNIE) Negative COVID-19 [employer] See Note 03/10/22 03/10/22 03/10/22 00:15 00:25 00:25 WBC 10.2 RBC 2.90 L D Hgb 8.7 L D Hct 26.8 L D MCV 92.4 MCH 30.0 MCHC 32.5 RDW 13.3 Plt Count 491 H MPV 9.7 Immature Gran % (Auto) 1.7 H Neut % (Auto) 72.0 Lymph % (Auto) 16.1 L [place] % (Auto) 7.6 Eos % (Auto) 2.1 Baso % (Auto) 0.5 Lymph # (Auto) 1.7 [place] # (Auto) 0.8 Eos # (Auto) 0.2 Baso # (Auto) 0.1 Abs Immat Gran (auto) 0.17 H Absolute Neuts (auto) 7.4 Absolute Nucleated RBC 0.000 Nucleated RBC % (auto) 0.0 VBG pH VBG pCO2 VBG pO2 VBG HCO3 VBG O2 Saturation VBG Base Excess Sodium 143 Potassium 4.0 Chloride 110 H Carbon Dioxide 21 L Anion Gap 16 BUN 22 H Creatinine 1.53 H Estim Creat Clear Calc 88.0 Estimated GFR 52 Random Glucose 100 Calcium 8.4 D Phosphorus Magnesium Total Bilirubin 0.3 AST 26 ALT 66 H Alkaline Phosphatase 124 H Total Creatine Kinase Troponin I High Sens Total Protein 6.4 L Albumin 3.5 Urine Color Urine Appearance Urine pH Ur Specific [place] Urine Protein Urine Glucose (UA) Urine Ketones Urine Blood Urine Nitrite Ur Leukocyte Esterase Salicylates Urine Opiates Screen Urine Fentanyl Screen Acetaminophen Ur Barbiturates Screen Ur Phencyclidine Scrn Ur Amphetamines Screen Phenobarbital < 1.1 L* U Benzodiazepines Scrn Urine Cocaine Screen U Marijuana (THC) Screen Ethyl Alcohol COVID-19 (DANNIE) COVID-19 Clin Com 03/10/22 03/10/22 03/10/22 00:40 05:21 05:21 WBC 10.1 RBC 3.33 L Hgb 10.0 L Hct 30.8 L MCV 92.5 MCH 30.0 MCHC 32.5 RDW 13.5 Plt Count 483 H MPV 9.7 Immature Gran % (Auto) 0.8 H Neut % (Auto) 66.6 Lymph % (Auto) 22.9 [place] % (Auto) 7.3 Eos % (Auto) 1.9 Baso % (Auto) 0.5 Lymph # (Auto) 2.3 [place] # (Auto) 0.7 Eos # (Auto) 0.2 Baso # (Auto) 0.1 Abs Immat Gran (auto) 0.08 H Absolute Neuts (auto) 6.7 Absolute Nucleated RBC 0.000 Nucleated RBC % (auto) 0.0 VBG pH 7.52 H VBG pCO2 26 VBG pO2 130 VBG HCO3 22 VBG O2 Saturation 100.0 VBG Base Excess 0.3 Sodium 142 Potassium 4.5 Chloride 111 H Carbon Dioxide 21 L Anion Gap 15 BUN 18 H Creatinine 1.28 Estim Creat Clear Calc 105.2 Estimated GFR > 60 Random Glucose 92 Calcium 8.4 Phosphorus Magnesium Total Bilirubin AST ALT Alkaline Phosphatase Total Creatine Kinase Troponin I High Sens Total Protein Albumin Urine Color Urine Appearance Urine pH Ur Specific [place] Urine Protein Urine Glucose (UA) Urine Ketones Urine Blood Urine Nitrite Ur Leukocyte Esterase Salicylates Urine Opiates Screen Urine Fentanyl Screen Acetaminophen Ur Barbiturates Screen Ur Phencyclidine Scrn Ur Amphetamines Screen Phenobarbital U Benzodiazepines Scrn Urine Cocaine Screen U Marijuana (THC) Screen Ethyl Alcohol COVID-19 (DANNIE) COVID-19 Clin Com Imaging Radiology Impressions: ITS Impressions Chest X-Ray 03/10/22 00:53 IMPRESSION: No acute pulmonary findings. Pelvis X-Ray 03/10/22 03:00 IMPRESSION: 1. There are 2 nonspecific radiopaque bodies projecting inferior to the pubic symphysis in the area of the penis. Correlate with physical examination. 2. No acute osseous abnormalities. Medications Allergies Allergies Allergy/AdvReac Type Severity Reaction Status Date / Time No Known Allergies Allergy Unverified 02/14/22 08:37 [No Known Allergies*] Assessment & Plan Assessment & Plan (1) Substance use disorder: Status: Acute Code(s): F19.90 - Other psychoactive substance use, unspecified, uncomplicated Plan Unable to complete substance use assessment, due to patient's altered mental status. Plan to return to see patient once he is more mentally cleared. This was shared with covering provider, Dr. Johnny Miranda. Addiction consult service MANAGER MINING, RN, provided with report for Friday. I spent minutes with the patient and/or on the patient floor today, greater than?50% of which was spent counseling/coordinating care. [facility] Past Medical History Medical History (Updated 03/10/22 @ 01:30 by María Elena Boyce MD) Substance use disorder Social History Social History Unable to assess alcohol history related to: Unable to respond and Refusing to respond Patient Tobacco Use Status: Tobacco use Unknown
== END 2022-03-10 19:15 | disposition left against medical advice (07) | DRG 812 ==
LOC: HO.ED 03-10 00:53 → HO.EDOVER 03-10 01:26 → HO.S3 03-10 02:29
PROVIDERS: Physician Assistant; Admitting Provider Student in an Organized Health Care Education/Training Program; Emergency Provider Student in an Organized Health Care Education/Training Program; Visit Provider Internal Medicine
DX: T50.911A Poisoning by multiple unspecified drugs, medicaments and biological substances, accidental (unintentional), initial encounter (principal); G92.9 Unspecified toxic encephalopathy; N17.9 Acute kidney failure, unspecified; D64.9 Anemia, unspecified; F11.20 Opioid dependence, uncomplicated; R94.31 Abnormal electrocardiogram [ECG] [EKG]; F19.10 Other psychoactive substance abuse, uncomplicated; N48.6 Induration penis plastica; D75.839 Thrombocytosis, unspecified; Z20.822 Contact with and (suspected) exposure to COVID-19
CPT/HCPCS: 36415; 71045; 72170; 80048; 80053; 80143; 80179; 80184; 80307; 81003; 82077; 82550; 82803; 83735; 84100; 84484; 85025; 87635; 93005; 99285; J2250; J3475

== ENCOUNTER 2022-04-30 09:17 | Outpatient (REF) | payer OTHER, SELFPAY ==
[2022-04-30 11:13] LABS: Alanine Aminotransferase 14 U/L (0-40); Albumin Level 4.8 g/dL (3.5-5.0); Alkaline Phosphatase 78 U/L (39-117); Anion Gap 12 (12-20); Aspartate Amino Transferase 15 U/L (5-37); Bilirubin Total 0.5 mg/dL (0.0-1.0); Blood Urea Nitrogen 6 mg/dL (9-16); Calcium 10.2 mg/dL (8.4-10.2); Carbon Dioxide 26 mmol/L (22-29); Chloride 106 mmol/L (96-108); Estimated Glomerular Filt Rate > 60; Glucose Random 103 mg/dL (60-115); Potassium 3.8 mmol/L (3.3-5.1); Sodium 140 mmol/L (135-145); Total Protein 7.6 g/dL (6.5-8.0)
[2022-04-30 11:34] LABS: Thyroid Stimulating Hormone 11.82 uIU/mL (0.32-4.0)
== END 2022-04-30 09:18 | disposition home or self-care (01) ==
LOC: HO.LAB 09:17
PROVIDERS: PCP Internal Medicine; Visit Provider Clinical Nurse Specialist Psychiatric/Mental Health, Adult
DX: Z79.899 Other long term (current) drug therapy (principal)
CPT/HCPCS: 36415; 80053; 84443

== ENCOUNTER 2025-03-13 18:00 | Emergency (ER) | payer BC, SELFPAY ==
--- NOTE | ~2025-03-13 | XR_ITS ---
CLINICAL HISTORY: fall right shoulder pain 3 views right shoulder Comparison: None Findings: No fractures or dislocations. No significant arthritic change. No radiopaque foreign body. Normal visualized right chest. Impression: 1. Normal right shoulder This document has been electronically signed by: Kam Johnson MD on 03/13/2025 19:11:14
--- NOTE | ~2025-03-13 | XR_ITS ---
CLINICAL HISTORY: fall 2 views right clavicle Comparison: None Findings: No fractures or dislocations. No significant arthritic change. No radiopaque foreign body. Impression: 1. Normal right clavicle This document has been electronically signed by: Kam Johnson MD on 03/13/2025 19:02:58
[2025-03-13 18:06] VITALS: BP 156/108; PULSE 66; RESP 16; TEMP 36.8; O2SAT 97; BMI 28.4
--- NOTE | 2025-03-13 18:09 | ED.EXTPRO ---
HPI - Extremity Problem General Chief complaint: Extremity Injury, Upper Stated complaint: ? rt collar bone fracture Time Seen by Provider: 03/13/25 20:40 Source: patient Mode of arrival: ambulatory Limitations: no limitations History of Present Illness ED Provider: Dr. Donovan HPI Narrative: 39-year-old male presented hospital today for right shoulder pain. Patient stated that he found himself on the floor. He went to sleep prior to the event. Unable to recall the events of how he end up on the floor. He is denying any pain anywhere else besides his right shoulder. He stated it is difficult for him to range his right shoulder. Related Data Home Medications ?Medication ?Instructions ?Recorded ?Confirmed acetaminophen 650 mg 2 tab PO Q8H PRN Pain (Scale Score 03/10/22 03/10/22 tablet,extended release (Mapap 1-3) Arthritis Pain) ibuprofen 600 mg tablet 1 tab PO TID 03/10/22 03/10/22 methadone 10 mg/mL oral concentrate 60 mg PO DAILY 03/10/22 03/10/22 sulfamethoxazole 800 1 tab PO Q12H 03/10/22 03/10/22 mg-trimethoprim 160 mg tablet Previous Rx's ?Medication ?Instructions ?Recorded acetaminophen 500 mg tablet 1,000 mg (2 x 500 mg) PO Q8H 10 03/13/25 (Tylenol Extra Strength) days #60 tabs ibuprofen 400 mg tablet 400 mg PO Q8H PRN pain #30 tabs 03/13/25 lidocaine 5 % topical patch 1 patch topical DAILY 15 days #15 03/13/25 ea Allergies Allergy/AdvReac Type Severity Reaction Status Date / Time No Known Allergies (No Known Allergy Verified 03/13/25 18:09 Allergies*) Review of Systems Review of Systems: Pertinent review of systems as mentioned in HPI. All other system otherwise negative. [facility] Past Medical History [facility] Narrative: Substance use disorder Medical History (Updated 03/13/25 @ 21:04 by Lydia Donovan DO) Substance use disorder Social History Social History Patient Tobacco Use Status: Tobacco use Unknown Advance Directives: No Advance Directives Information Provided: No Do you have a plan to hurt others: No Plan Physical Exam Exam: Exam: General: Pleasant, no distress, interacting appropriately Head: Normacephalic, atraumatic ENT: oral mucosa moist, neck supple, no tracheal deviation Cardiovascular: regular rate, regular rhythm, no murmurs, rubbing, gallops, no chest wall tenderness Respiratory: CTAB, no wheeze, rales, rhonchi Gastrointestinal: Soft, non distended, non tender, non guarding Extremities: right shoulder pain on palpation, CMS intact of the right shoulder. No obvious deformity Neurological: Awake and alert, no facial droop noted Skin: Warm and dry Psychiatric: Appropriate mood and thoughts Vital Signs: Vital Signs: Last Vital Signs Temp 98.2 F 03/13/25 21: Pulse 59 03/13/25 21:27 Resp 16 03/13/25 21: BP 145/77 H 03/13/25 21: Pulse Ox 100 03/13/25 21: O2 Del Method Room Air 03/13/25 21: BMI result Body Mass Index 28.4 Course Course Course Narrative: This is a Rapid Medical Examination (RME) performed by Joi Sung PA-C in triage. Full HPI, ROS, assessment and treatment plan per primary provider in the Main ED. Hx: 39 yo M hx of encephalopathy and substance use disorder here with right shoulder pain x this morning. Patient reports waking up on the floor face down. He does not recall how he got there. States he may have either rolled out of bed or might have been sleep walking. admits to striking his head however does not remember the event. denies hx seizures. denies consuming etoh or taking any meds that may have made him pass out. only endorsing right shoulder pain exacerbated w/ movement. PE/vitals: odd affect. 2+ radial pulse to RUE. pain w/ extension and abduction of right shoulder, ROM to 45 degrees. Plan: imaging 1830 -- I was called to the radiology suite - patient adamantly declining imaging of his head/ neck. States that he can not afford it. I did explain to patient that I have concern given the patient does not know how he ended up on the floor this morning. He has quite an odd affect and is acting very strange and is telling me that he hit his head. Declining CT at this time. Will defer to primary provider. Medical Decision Making Medical Decision Making MDM Narrative: This is a 39-year-old male presented hospital today for right shoulder pain. X-ray were obtained. No signs of fracture of the right shoulder no sign of dislocation. I suspect patient likely has sprain his shoulder. We will plan to give patient is sling for shoulder for comfort. Encouraged the patient to stretch his shoulder when possible. Encouraged to take NSAIDs for his pain. Follow up with his primary care doctor for evaluation of the right shoulder sprain. Patient will be discharged at this time Differential Diagnosis Differential Diagnoses: The differential diagnosis associated with the presentation includes shoulder sprain, right shoulder dislocation, fracture of humerus Independent Interpretation I performed an independent interpretation of an: Plain X-Ray Radiology Impression Discussion of test interpretation with radiology: I have reviewed the radiologist's reading. Discharge Plan Discharge Clinical Impression: Shoulder sprain Qualifiers: Encounter type: initial encounter Shoulder sprain type: unspecified sprain Laterality: right Qualified Code(s): S43.401A - Unspecified sprain of right shoulder joint, initial encounter Patient Disposition: Home, Self-Care Instructions: Shoulder Sprain (ED) Additional Instructions: Take tylenol 1000mg every 8 hours or ibuprofen 400mg every 8 hours. Wear sling for comfort make sure to stretch your shoulder. Prescriptions: New lidocaine 5 % adhesive patch,medicated 1 patch topical DAILY 15 Days Qty: 15 0RF Rx Instructions: leave on most painful area for up to 12 hrs acetaminophen [Tylenol Extra Strength] 500 mg tablet 1,000 mg PO Q8H 10 Days Qty: 60 0RF ibuprofen 400 mg tablet 400 mg PO Q8H PRN (Reason: pain) Qty: 30 0RF No Action sulfamethoxazole-trimethoprim 800-160 mg tablet 1 tab PO Q12H acetaminophen [Mapap Arthritis Pain] 650 mg tablet extended release 2 tab PO Q8H PRN (Reason: Pain (Scale Score 1-3)) methadone 10 mg/mL Concentrate 60 mg PO DAILY Rx Instructions: methadone clinic : [facility] [phone] ibuprofen 600 mg tablet 1 tab PO TID Referrals: [facility] [Provider Group, Internal Medicine] Stand Alone Forms: Work/School Release Interventions: ED Discharge Assessment Last Done: 03/13/25 21:27 Discharge Date/Time: 03/13/25 21:29 Print Language: [place]
--- OUTSIDE RECORDS SUMMARY | 2025-03-13 18:50 | XMS_ITS | Clinical Summary ---
Author Organization [address] Address [address] [place] [phone] Phone Care Team Providers Care Tool And Gauge Inspector Name Role Phone Pcp, Does Not Have A Primary Care Provider Unava ilable Allergies No known active allergies Social History Tobacco Use Types Packs/Day Years Used Date Smoking Tobacco: Never Assessed PHQ-2 Answer Date Recorded PHQ-2 Total Score 0 05/25/2021 Sex and Gender Information Value Date Recorded Sex Assigned at Not on file Legal Sex Male 9:56 PM EST Gender Identity Not on file Sexual Orientation Not on file Last Filed Vital Signs Vital Sign Reading Time Taken Comments Blood Pressure 158/109 05/25/2021 5:01 AM EST Pulse 88 05/25/2021 5:01 AM EST Temperature 36.6 C (97.8 F) 05/25/2021 5:01 AM EST Respiratory Rate 18 05/25/2021 5:01 AM EST Oxygen Saturation 98% 05/25/2021 5:01 AM EST Inhaled Oxygen Concentration - - Weight - - Height - - Body Mass Index - - Plan of Treatment Health Maintenance Due Date Last Done Comments HIV screening 11/29/2000 Hepatitis C screening 11/29/2005 Tetanus adult (Td q 10,TDAP once) 2007 Influenza vaccine 11/26/2024 Covid-19 vaccine series ( - season) 2024 RSV Immunization (1 - 1-dose 75+ series) 11/29/2062 Meningococcal B Vaccine Aged Out No l onger eligible based on patient's age to complete this topic Meningococcal Vaccine Aged Out No jennifer alberto eligible based on patient's age to complete this topic Pneumococcal Vaccine (2 - 49 years) Aged Out No longer eligible based on patient's age to complete this topic Insurance Care Teams Tool And Gauge Inspector Relationship Specialty Start Date End Date Pcp, Does Not Have A PCP - General 05/24/21
[2025-03-13 19:42] VITALS: BP 130/60; PULSE 54; RESP 14; TEMP 36.6; O2SAT 100
[2025-03-13 21:19] VITALS: BP 145/77; PULSE 59; RESP 16; TEMP 36.8; O2SAT 100
[2025-03-13 21:27] VITALS: BP 145/77; PULSE 59; RESP 16; TEMP 36.8; O2SAT 100
== END 2025-03-13 21:29 | disposition home or self-care (01) ==
PROVIDERS: Emergency Provider Student in an Organized Health Care Education/Training Program; PCP Internal Medicine
DX: S43.401A Unspecified sprain of right shoulder joint, initial encounter (principal); X58.XXXA Exposure to other specified factors, initial encounter; Y93.89 Activity, other specified; Y92.098 Other place in other non-institutional residence as the place of occurrence of the external cause; Y99.8 Other external cause status
CPT/HCPCS: 73000; 73030; 99283; 99284

== ENCOUNTER → 2025-03-13 18:08 | Outpatient (BNV) | payer BC, SELFPAY | PROVIDERS: PCP Internal Medicine; Visit Provider Radiology Diagnostic Radiology | DX: M25.511 Pain in right shoulder (principal); Z04.3 Encounter for examination and observation following other accident | CPT/HCPCS: 73000; 73030 ==